=== PATIENT | male | born 1985 | race Caucasian/White ===

== ENCOUNTER 2021-02-07 20:36 | Emergency (ER) | payer OTHER ==
[~2021-02-07] VITALS: Ht 180.3 cm; Wt 81.6 kg
[2021-02-07 20:45] VITALS: BP 134/87
--- NOTE | 2021-02-07 20:45 | NUR ---
TO BED AMBULATORY
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
[2021-02-07] MEDS ORDERED: KETOROLAC 60 MG/2 ML VIAL IM ONE (21:45)
--- NOTE | 2021-02-07 22:00 | NUR ---
PATIENT TAKEN TO CT.
[2021-02-07] MEDS ORDERED: NAPR-54 PO (23:16)
[2021-02-07 23:20] VITALS: BP 135/82
--- NOTE | 2021-02-07 23:20 | NUR ---
Patient discharged with v/s stable BY . Written and verbal after care instructions given and explained BY . Patient alert, oriented and verbalized understanding of instructions. Ambulatory with steady gait. All questions addressed prior to discharge. ID band removed. Patient advised to follow up with PMD BY . Rx of NAPROXEN given BY . Patient educated on indication of medication including possible reaction and side effects BY . Opportunity to ask questions provided and answered BY .
== END 2021-02-07 23:20 | disposition home or self-care (01) ==
LOC: MED 20:36
DX: S20.212A Contusion of left front wall of thorax, initial encounter (principal); S09.90XA Unspecified injury of head, initial encounter; S00.81XA Abrasion of other part of head, initial encounter; R42 Dizziness and giddiness; Z79.1 Long term (current) use of non-steroidal anti-inflammatories (NSAID); Z88.0 Allergy status to penicillin; V29.9XXA Motorcycle rider (driver) (passenger) injured in unspecified traffic accident, initial encounter; Y93.89 Activity, other specified; Y92.410 Unspecified street and highway as the place of occurrence of the external cause; Y99.8 Other external cause status
CPT/HCPCS: 70450; 71101; 72125; 96372; 99285; J1885; Q0092